=== PATIENT | female | born 1955 | race Caucasian/White ===

== ENCOUNTER → 2019-11-21 | Day surgery (SDC) | payer OTHER ==
--- NOTE | 2019-11-21 13:11 | RAD REPORT ---
EXAM DESCRIPTION: US - Breast Core BX w/US Guidance - 11/21/2019 11:39 am CLINICAL HISTORY: R92.8 COMPARISON: Mammogram and ultrasound studies November 06 TECHNIQUE: The patient presents for ultrasound-guided biopsy of a previously detailed right breast m ass in the 8 o'clock lower outer quadrant. The ultrasound-guided core biopsy procedure, risks and alternatives were discussed with the patient i n detail. After answering all questions, both oral and written consent were obtained. Time out proced ure was performed. The patient had no contraindicated allergy or medication history. Preliminary imaging identified the 14 millimeter right mass. The right breast was prepped and draped in the usual sterile fashion. From an inferior approach, skin and deeper tissues were anesthetized wi th 1% lidocaine. Under direct sonographic visualization a 14 gauge vacuum assisted core biopsy needle was advanced and placed at the margin of the mass. There were a total of 3 core biopsies obtained un prem direct sonographic guidance. The mass did appear to have distortion in contour supporting transit of the biopsy needle through the small mass. At the conclusion of the procedure a localization clip was placed under sonographic guidance. Post biopsy imaging showed no hematoma or measurable bleeding within the breast. Hemostasis was obtai krzysztof at the skin site with a sterile bandage placed. Post procedure care and precaution instructions were given to the patient. IMPRESSION: 1. Ultrasound-guided core biopsy was performed of the previously detailed right breast m ass. All obtained material was given to pathology for histologic assessment. 2. Post biopsy localization clip was placed under ultrasound guidance.
== END ==
LOC: DS 10:40
PROVIDERS: ATTEND Internal Medicine Nephrology
DX: N60.91 Unspecified benign mammary dysplasia of right breast (principal); N60.21 Fibroadenosis of right breast
CPT/HCPCS: 19083; 88305